=== PATIENT | female | born 1985 | race Caucasian/White ===

== ENCOUNTER 2019-10-22 23:17 | Observation (INO) ==
--- OUTSIDE RECORDS SUMMARY | 2019-10-22 23:19 | External Medical Summary | Continuity of Care Document ---
:1985 Author Name Michael Borjas, Provider Address Unavailable Unavailable , Care Team Providers Name Role Phone Non[facility]PG MChristine, Provider Unavailable [email or web address], UNKNOWN Unavailable Unavailable Problems Active medical history not documented Allergies and Adverse Reactions Allergy history not documented Medications Medications not documented Procedures Procedures not documented Immunizations Immunizations not documented Plan of Treatment Planned Observations Planned Goals not documented Results No Known Results Results not documented
[2019-10-22] MEDS ORDERED: SODIUM CHLORIDE 0.9% 1000ML 1,000 ML IV SCH (23:45)
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
[2019-10-23 00:37] LABS: Appearance Urine Turbid (Clear); Bacteria Urine Automated 4+ (Negative); Bilirubin Urine Negative (Negative); Blood Urine Negative (Negative); Color Urine Yellow; Epithelial Cell Urine Auto 20-30 /lpf (0-5); Glucose Urine UA Negative (Negative); Ketones Urine Negative (Negative); Leukocyte Esterase Urine Negative (Negative); Nitrite Urine Positive (Negative); Protein Urine Negative (Negative); RBC Urine Automated 0-4 /hpf (0-4); Urobilinogen Urine Negative (Negative); WBC Urine Automated 0 /hpf (0-5); pH Urine >= 9.0 (4.5-7.5)
[2019-10-23 00:40] LABS: Basophils # (auto) 0.02 K/uL (0-0.2); Basophils % (auto) 0.2 %; Eosinophils # (auto) 0.05 K/uL (0-0.5); Eosinophils % (auto) 0.6 %; Hematocrit (blood only) 42.2 % (37-47); Hemoglobin 14.4 g/dL (12.0-16.0); Immature Granulocytes # (auto) 0.02 K/uL (0.00-0.02); Immature Granulocytes % (auto) 0.2 %; Lymphocytes % (auto) 25.8 %; Mean Corpuscular Hemoglobin 31.5 pg (25-34); Mean Corpuscular Hgb Conc 34.1 g/dL (32-36); Mean Corpuscular Volume 92.3 fL (80-100); Monocytes # (auto) 0.49 K/uL (0.11-0.59); Monocytes % (auto) 5.5 %; Neutrophils # (auto) 6.02 K/uL (1.4-6.5); Neutrophils % (auto) 67.7 %; Platelet Count 419 K/uL (130-400); RDW Coefficient of Variation 13.2 % (11.5-14.5); RDW Standard Deviation 44.6 fL (36.4-46.3); Red Blood Count 4.57 M/uL (4.2-5.4)
[2019-10-23 00:56] LABS: D Dimer < 190 ug/L FEU (0-500); Partial Thromboplastin Ratio 0.9; Partial Thromboplastin Time 25.9 Seconds (21.0-31.0); Prothrombin Time 10.2 Seconds (9.0-12.0)
[2019-10-23 00:57] LABS: Alanine Aminotransferase 19 U/L (12-78); Albumin Level 3.9 gm/dl (3.4-5.0); Aspartate Aminotransferase 8 U/L (15-37); BUN Creatinine Ratio 7.7 (10-20); Blood Urea Nitrogen 5 mg/dl (7-18); Calcium 9.1 mg/dl (8.5-10.1); Carbon Dioxide 30 mmol/L (21-32); Chloride 101 mmol/L (98-107); Creatinine Clr Calc Pharmacy 125.8 ml/min; Est GFR (African American) 137.6; Est GFR (Non-African American) 118.7; Glucose 100 mg/dl (70-99); Lipase 56 U/L (73-393); Magnesium 2.2 mg/dl (1.8-2.4); Potassium 3.5 mmol/L (3.5-5.1); Sodium 136 mmol/L (136-145)
[2019-10-23 01:07] LABS: Albumin Globulin Ratio 0.9 (0.9-2); Alkaline Phosphatase 80 U/L (45-117); Bilirubin,Total 0.4 mg/dl (0.2-1); Globulin 4.3 gm/dl (2.5-4.0); Total Protein 8.2 gm/dl (6.4-8.2); Troponin I < 0.015 ng/ml (0-0.045)
[2019-10-23 01:26] LABS: Influenza A virus by PCR Neg for Influ A (Neg); Influenza B virus by PCR Neg for Influ B (Neg)
[2019-10-23] MEDS ORDERED: IOVERSOL 100ml IV PRN (01:55)
[2019-10-23] MEDS ORDERED: cefTRIAXone SODIUM 1,000 MG/50 ML BAG IV STA (02:57)
[2019-10-23] MEDS ORDERED: SODIUM CHLORIDE 0.9% 1000ML 1,000 ML IV SCH (03:00)
[2019-10-23] MEDS ORDERED: POTASSIUM CHLORIDE 10 MEQ TABCR PO STA (03:14)
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
[2019-10-23] MEDS: NICOTINE 21 MG/24 HR TDSY TD SCH ×2 (03:46→12:21)
[2019-10-23] MEDS ORDERED: ACETAMINOPHEN 325 MG TAB PO PRN (04:34)
[2019-10-23] MEDS ORDERED: KETOROLAC TROMETHAMINE 15 MG/ML VIAL IV PRN (04:34)
[2019-10-23] MEDS ORDERED: IBUPROFEN 200 MG TAB PO PRN (04:34)
[2019-10-23] MEDS ORDERED: PROMETHAZINE HCL 12.5 MG in SODIUM CHLORIDE 0.9% 50 ML IV PRN (04:34)
[2019-10-23] MEDS ORDERED: LORazepam 0.25 MG/0.5 ML VIAL IV PRN (04:34)
[2019-10-23] MEDS ORDERED: POTASSIUM CHLORIDE 40 MEQ in SODIUM CHLORIDE 0.9% 1000ML 1,000 ML IV ONE (05:15)
[2019-10-23 05:17] LABS: Amphetamines+Metham, Urine Pos (Neg); Barbiturates, Urine Neg (Neg); Benzodiazepine, Urine Neg (Neg); Cocaine, Urine Neg (Neg); MDMA (Ecstacy), Urine Neg (Neg); Methadone, Urine Neg (Neg); Opiate, Urine Neg (Neg); Phencyclidine, Urine Neg (Neg)
--- NOTE | 2019-10-23 07:19 | XRay Report ---
XR chest 1V portable HISTORY: Atypical chest pain COMPARISON: None. FINDINGS: The lungs are clear. Cardiac silhouette is normal in size. No pleural effusions. No pneumot horax. IMPRESSION: No acute process. ACT 112: Negative or not required by law. Electronically signed by: Zeke Booth M.D. 10/23/2019 7:17 AM
--- NOTE | 2019-10-23 07:59 | CT Scan Report ---
ABDOMEN AND PELVIS CT WITH IV CONTRAST CT DOSE: 267.02 mGy.cm HISTORY: Uti, back pain, tachycardia TECHNIQUE: Multiaxial CT images of the abdomen and pelvis were performed following the use of intrave nous contrast. A dose lowering technique was utilized adhering to the principles of ALARA. COMPARISON STUDY: None. FINDINGS: The lung bases are clear. No pneumoperitoneum. No pneumatosis. No fractures within the visu alized osseous structures. The liver, gallbladder, spleen, adrenal glands, kidneys, and pancreas are unremarkable. No hydronephrosis. No retroperitoneal lymphadenopathy. Normal caliber abdominal aorta. The bladder and uterus are unremarkable. There is a 2.5 cm right ovarian cyst. No significant pelvic free fluid. No bowel wall thickening or obstruction. Normal appendix. IMPRESSION: 1. No bowel wall thickening or obstruction. 2. No hydronephrosis. 3. Normal appendix. 4. A 2.5 cm right ovarian cyst. ACT 112: Negative or not required by law. Electronically signed by: Zeke Booth M.D. 10/23/2019 7:57 AM
[2019-10-23] MEDS: BCP'S~ORDER AWAITING ACTION SCH ×3 (08:26→23:15)
[2019-10-23] MEDS: lisinopriL 10 MG TAB PO SCH (08:27)
[2019-10-23] MEDS: BuPROPion SR 150 MG TABCR PO SCH ×2 (08:27→20:34)
[2019-10-23] MEDS: ENOXAPARIN INJ 30 MG/0.3 ML SYR SQ SCH (08:27)
[2019-10-23] MEDS: FLINTSTONES COMPLETE CHEWABLE TAB PO SCH (08:27)
[2019-10-23] MEDS: TRAMADOL HCL 50 MG TABLET PO PRN ×2 (08:39→15:23)
--- NOTE | 2019-10-23 13:14 | Hospitalist Progress Note ---
Date of Service October 23, 2019 Assessment & Plan (1) Complicated UTI (urinary tract infection): Urinary Tract Infection CT ABD: No bowel wall thickening or obstruction. No hydronephrosis. Normal appendix. A 2.5 cm right ovarian cyst. Blood/Urine Cultures:pending Received IV fluids No signs of Sepsis Continue Rocephin Sinus Tachycardia Likely due to anxiety Monitor Repeat EKG in AM Right Ovarian Cyst Incidental finding on CT scan Advised to follow up with OBGYN as outpatient Hypertension BP stable Continue lisinopril ADD/anxiety/mood disorder Continue home meds Cervical intraepithelial neoplasia As per records Ongoing tobacco abuse Public Policy Mediator to quit Nicotine patch DVT Px: Lovenox SQ Code Status Full code Disposition Expect to discharge home when stable Admission and Anticipated Discharge Date Admission Date: October 23, 2019 Subjective Patient is seen and examined at bedside Doing better today Chest discomfort and dyspnea improved (which patient attributes to anxiety) States lower abdominal discomfort improved with medications Denies any nausea, vomiting, dizziness, dysuria, hematuria Offers no other complaints Review of Systems Review of Systems: All systems reviewed & are unremarkable except as noted in HPI & below Physical Exam Physical Exam: Physical Exam: Vitals signs as noted above General Appearance:Moderately built and nourished, no apparent distress Head: normocephalic, Atraumatic Eyes: normal inspection, EOMI Neck: supple, Trachea midline Respiratory/Chest: Normal breath sounds, CTA Cardiovascular: S1, S2, No murmur, Tachycardia Abdomen/GI:Soft, Non tender, Bowel sounds present Extremities/Musculoskelatal:normal inspection, no edema Neurologic/Psych:AAOX3, grossly no focal neurological deficits Skin: normal color, warm Results & Data Results & Data ([facility]) Vital Signs (Past 12 Hours) Vital Signs Temp Pulse Pulse Resp BP BP Pulse Ox 10/23/19 11:42 36.4 C L 98 H 16 118/78 98 10/23/19 07:44 36.7 C 108 H 16 129/71 98 10/23/19 07:18 92 H 10/23/19 05:58 110 H 10/23/19 04:57 36.7 C 107 H 16 128/87 98 10/23/19 03:52 108 H 18 136/99 98 10/23/19 03:30 111 H 21 141/94 H 97 10/23/19 03:02 107 H 17 160/95 H 95 10/23/19 02:30 105 H 20 139/97 100 10/23/19 02:10 110 H 24 148/112 H 100 10/23/19 01:40 105 H 17 100 10/23/19 01:30 102 H 16 139/87 100 Laboratory Results Short CBC 10/23/19 Range/Units 00:31 WBC 8.90 (4.8-10.8) K/uL Hgb 14.4 (12.0-16.0) g/dL Hct 42.2 (37-47) % Plt Count 419 H (130-400) K/uL BMP 10/23/19 00:31 Sodium 136 Potassium 3.5 Chloride 101 Carbon Dioxide 30 BUN 5 L Creatinine 0.63 Glucose 100 H Calcium 9.1 Cardiac Enzymes 10/23/19 Range/Units 00:31 Troponin I < 0.015 (0-0.045) ng/ml Liver Function 10/23/19 Range/Units 00:31 Total Bilirubin 0.4 (0.2-1) mg/dl AST 8 L (15-37) U/L ALT 19 (12-78) U/L Alkaline Phosphatase 80 (45-117) U/L Albumin 3.9 (3.4-5.0) gm/dl Urine 10/23/19 Range/Units 00:20 Urine Color Yellow Urine Appearance Turbid A (Clear) Urine pH >= 9.0 H (4.5-7.5) Ur Specific [place] 1.010 (1.000-1.030) Urine Protein Negative (Negative) Urine Glucose (UA) Negative (Negative)
--- NOTE | 2019-10-23 13:27 | Electrocardiogram Report ---
Test Reason : Blood Pressure : / mmHG Vent. Rate : 116 BPM Atrial Rate : 116 BPM P-R Int : 164 ms QRS Dur : 064 ms QT Int : 294 ms P-R-T Axes : 066 051 048 degrees QTc Int : 408 ms Poor data quality, interpretation may be adversely affected Sinus tachycardia Possible Left atrial enlargement Nonspecific ST abnormality Abnormal ECG When compared with ECG of 03-SEP-2010 16:09, Nonspecific T wave abnormality, improved in Inferior leads Confirmed by Merritt Holbrook ([id number]) on 10/23/2019 1:27:29 PM Referred By: REFERRED SELF Confirmed By:Merritt Holbrook
[2019-10-24] MEDS ORDERED: POTASSIUM CHLORIDE 40 MEQ in SODIUM CHLORIDE 0.9% 1000ML 1,000 ML IV ONE (01:02)
[2019-10-24] MEDS ORDERED: cefTRIAXone SODIUM 1,000 MG in DEXTROSE 5% 50 ML IV SCH (03:00)
[2019-10-24 06:09] LABS: Basophils # (auto) 0.02 K/uL (0-0.2); Basophils % (auto) 0.3 %; Eosinophils # (auto) 0.21 K/uL (0-0.5); Eosinophils % (auto) 2.6 %; Hematocrit (blood only) 38.4 % (37-47); Hemoglobin 12.6 g/dL (12.0-16.0); Immature Granulocytes # (auto) 0.01 K/uL (0.00-0.02); Immature Granulocytes % (auto) 0.1 %; Lymphocytes # (auto) 3.07 K/uL (1.2-3.4); Lymphocytes % (auto) 38.6 %; Mean Corpuscular Hemoglobin 30.7 pg (25-34); Mean Corpuscular Hgb Conc 32.8 g/dL (32-36); Mean Corpuscular Volume 93.4 fL (80-100); Mean Platelet Volume 9.2 fL (7.4-10.4); Monocytes % (auto) 7.5 %; Neutrophils # (auto) 4.05 K/uL (1.4-6.5); Neutrophils % (auto) 50.9 %; Platelet Count 362 K/uL (130-400); RDW Coefficient of Variation 13.4 % (11.5-14.5); RDW Standard Deviation 45.4 fL (36.4-46.3); Red Blood Count 4.11 M/uL (4.2-5.4); White Blood Count 7.96 K/uL (4.8-10.8)
[2019-10-24 06:41] LABS: Calcium 8.1 mg/dl (8.5-10.1); Creatinine Clr Calc Pharmacy 122.5 ml/min; Est GFR (African American) 136.2; Est GFR (Non-African American) 117.5; Potassium 4.1 mmol/L (3.5-5.1)
[2019-10-24] MEDS: BCP'S~ORDER AWAITING ACTION SCH (08:52)
[2019-10-24] MEDS: FLINTSTONES COMPLETE CHEWABLE TAB PO SCH (08:52)
[2019-10-24] MEDS: lisinopriL 10 MG TAB PO SCH (08:53)
[2019-10-24] MEDS: NICOTINE 21 MG/24 HR TDSY TD SCH (08:53)
[2019-10-24] MEDS: BuPROPion SR 150 MG TABCR PO SCH (08:53)
[2019-10-24] MEDS: ENOXAPARIN INJ 30 MG/0.3 ML SYR SQ SCH (08:53)
--- NOTE | 2019-10-24 08:54 | Discharge Summary ---
Date of Service October 24, 2019 Admission HPI Per Admitting Provider History obtained from patient and records. Medical history significant for hypertension, ADD/anxiety/mood disorder, cervical intraepithelial neoplasia status post surgery, ongoing tobacco abuse. Remote confinement 2016 under Obstetrics service for childbirth/vaginal delivery. Patient has not been feeling feeling well the last 2 months. The last few weeks, urine noted to be more foul-smelling than usual, chronic back pain. Last night she noted palpitations and a grabbing sensation in the center of chest without cough symptoms. Some shortness of breath which patient attributes to anxiety. Transient headache symptoms. At the ER, patient received ceftriaxone for possible pyelonephritis. Medical History as above Surgical History : Hand surgery, colposcopy/LEEP procedure Family History : Anxiety disorder Personal/Social history : 1 pack daily, occasional EtOH intake, registered nurse Admission Exam Per Admitting Provider GENERAL: Comfortable, slightly anxious, eating food, no respiratory distress SKIN: Normal color, warm HEENT: [place] palpebral conjunctivae, no ptosis, dry buccal mucosa NECK : Supple, no tenderness CHEST : CTA, no tenderness HEART : Tachycardic, no obvious murmurs ABDOMEN: Some distention, nontender EXTREMITIES : No LE swelling/tenderness, no other conspicuous deformities noted NEUROLOGIC : Coherent, no facial asymmetry, no other gross focality Principal Diagnosis Gram Negative UTI/Pyelo Tachycardia Discharge Exam Physical Exam Gen-AAO x 3, NAD, Afebrile Head-NCAT, EOMI, PERRLA, Anicteric Sclera, No Posterior Pharyngeal Erythema Neck-Supple, No JVD, No Thyromegaly, No Masses, No LAD, No Bruits Lungs-Clear to Auscultation Bilaterally, No Rales, No Rhonchi, No Wheezing, No Crepitus Chest-No S4, +S1, +S2, No S3, No Murmurs, No Rubs, No Gallops, No Ectopy Abdomen-Soft, Bowel Sounds Present, Non Tender, Non Distended, No Hepatomegaly, No Splenomegaly, No Palpable Masses, No Rebound, No Rigidity, No Guarding Musculoskeletal-Full Range of Motion Bilaterally, No CVAT Extremities-No Cyanosis, No Clubbing, No Edema Nuero-Cranial Nerves II-XII grossly intact, Motor WNL, DTRs WNL, Strength WNL, Non Focal Psych-Normal Mood Discharge Data Allergies Allergy/AdvReac Type Severity Reaction Status Date / Time No Known Allergies Allergy Unverified 10/22/19 23:56 Consultations 10/23/19 03:04 ED Decision to Admit Stat 10/23/19 05:54 Consult Case Management - Discharge Planning Routine Ordered Studies 10/23/19 01:46 CT abd pelvis IV con only Urgent Current Diagnoses Urinary tract infection, site not specified (10/23/19) Allergies No Known Allergies Allergy (Unverified 10/22/19 23:56) Height/Weight/Isolation Height 5 ft 5 in Weight 70.6 kg Chemistry 10/23/19 10/24/19 00:31 05:47 Sodium 136 139 Potassium 3.5 4.1 D Chloride 101 106 Carbon Dioxide 30 28 Anion Gap 6.0 5.0 BUN 5 L 8 Creatinine 0.63 0.65 Glucose 100 H 99 Urinalysis 10/23/19 00:20 Urine Color Yellow Urine Appearance Turbid A Urine pH >= 9.0 H Ur Specific [place] 1.010 Urine Protein Negative Urine Glucose (UA) Negative Urine Ketones Negative Urine Blood Negative Urine Nitrite Positive A Urine Bilirubin Negative Microbiology 10/23/19 00:20 Urine,Clean Catch Urine Culture - Preliminary Gram negative bacilli 10/23/19 00:33 Blood Aerobic Blood Culture - Preliminary No growth in Aerobic bottle after 24 hours. 10/23/19 00:33 Blood Anaerobic Blood Culture - Preliminary No growth in Anaerobic bottle after 24 hours. 10/23/19 00:31 Blood Aerobic Blood Culture - Preliminary No growth in Aerobic bottle after 24 hours. 10/23/19 00:31 Blood Anaerobic Blood Culture - Preliminary No growth in Anaerobic bottle after 24 hours. 10/22/19 23:50 Throat Group A Streptococcus Rapid Screen - Final Specimen negative for Group A Beta Strep by rapid method. Culture report to follow. 10/22/19 23:50 Throat Group A Beta-Hemolytic Strep Cult - Pending Hospital Course (1) Complicated UTI (urinary tract infection): Urinary Tract Infection CT ABD: No bowel wall thickening or obstruction. No hydronephrosis. Normal appendix. A 2.5 cm right ovarian cyst. Urine Culture Gram neg Bacteria, Blood Cx neg Received IV fluids DC home today on Ceftin x 6 days Sinus Tachycardia Resloved Right Ovarian Cyst Incidental finding on CT scan Advised to follow up with METAL TEMPLATE MAKER as outpatient Hypertension BP stable Continue lisinopril ADD/anxiety/mood disorder Continue home meds Cervical intraepithelial neoplasia As per records Ongoing tobacco abuse Cd Mixer to quit Total Time Total Time Spent Total Time Spent (In Minutes): 45 mins Total Time Includes: Examination of the Patient, Discharge Planning and Medication Reconciliation Discharge Plan Discharge Items Patient Disposition: Home - Self-Care Reason For Visit: COMP UTI, TACHY Discharge Diagnosis: UTI/Pyelo Condition on Discharge: Good Activity: Resume your previous activity Lifting: Gradually increase as tolerated Bathing: No limitations Sexual Activity: When tolerated Driving/Machine Use: No limitations Weightbearing: Full weightbearing Non-emergency contact: Primary Care Provider Call non-emergency contact if: you have any medication questions Follow-up/Referrals: Susan Marin PA-C [Primary Care Provider] - Diet: Regular Addtl Attending Provider Instructions: None Pending Studies at Discharge: No Stand-Alone Forms: [employer], Smoking Cessation Medications and DC Order Prescriptions: New cefuroxime axetil 500 mg tablet 500 mg PO BID 6 Days Qty: 12 RF: 0 Continued bupropion HCl 150 mg tablet sustained-release 12 hr 150 mg PO BID RF: 0 lisinopril 10 mg Tablet 10 mg PO DAILY RF: 0 ascorbic acid (vitamin C) [Vitamin C] 500 mg Tablet Extended Release 500 mg PO DAILY RF: 0 Chewable-Ezequiel Tablet,Chewable 2 tab PO DAILY RF: 0 drospirenone-ethinyl estradiol 3-0.02 mg tablet 1 tab PO DAILY RF: 0 Discharge Orders: Discharge Order (Routine); Ordered 10/24/19 Ordered By: Mello Matias Admission Data Admit Date/Time: 10/23/19 03:38 Attending Provider: Mello Matias Admit Provider: Dmitri De Dios Primary Care Provider: Susan Marin Other Providers: Dmitri De Dios
--- NOTE | 2019-10-24 13:53 | Electrocardiogram Report ---
Test Reason : Blood Pressure : / mmHG Vent. Rate : 089 BPM Atrial Rate : 089 BPM P-R Int : 134 ms QRS Dur : 068 ms QT Int : 360 ms P-R-T Axes : 082 077 080 degrees QTc Int : 438 ms Normal sinus rhythm Normal ECG When compared with ECG of 22-OCT-2019 23:34, Nonspecific T wave abnormality no longer evident in Inferior leads Confirmed by Merritt Holbrook ([id number]) on 10/24/2019 1:53:07 PM Referred By: REFERRED SELF Confirmed By:Merritt Holbrook
[2019-10-24 23:54] LABS: Amphetamine Urine, Confirm NEGATIVE ng/mL (<250); Marijuana Quant, GCMS Urine 35 ng/mL (<5); Methamphetamine, Ur Confirm 2120 ng/mL (<250)
== END 2019-10-24 13:59 | disposition home or self-care (01) ==
LOC: ED 23:17 → 2N 10-23 03:38 → INTOOBSV 10-23 03:38 → SUATTDRO 10-23 03:38 → 2N 10-23 04:15